=== PATIENT | female | born 1990 | race Hispanic/Latino ===

== ENCOUNTER 2019-09-09 11:18 | Emergency (ER) | payer BC ==
[~2019-09-09] VITALS: Ht 165.1 cm; Wt 72.6 kg
[2019-09-09] MEDS ORDERED: IBUPROFEN 600 MG TAB PO NR (12:00)
[2019-09-09 12:05] LABS: STREPTOCOCCUS GRP A ANTIGEN NEGATIVE (NEGATIVE)
[2019-09-09 12:15] LABS: INFLUENZAE A&B ANTIGEN (RAPID) POSITIVE FLU B (NEGATIVE)
== END 2019-09-09 12:36 | disposition home or self-care (01) ==
LOC: ER 11:18
DX: J11.1 Influenza due to unidentified influenza virus with other respiratory manifestations (principal)
CPT/HCPCS: 83518; 87070; 87400; 99283

== ENCOUNTER 2020-02-16 09:25 | Emergency (ER) | payer SELFPAY ==
[~2020-02-16] VITALS: Ht 165.1 cm; Wt 72.6 kg
--- OUTSIDE RECORDS SUMMARY | 2020-02-16 09:27 | XMS REPORT ---
[facility] Unknown Phone Unavailable Care Team Providers Care Physician Representative Name Role Phone NO, PCP PP Unavailable Problems This patient has no known problems. Allergies, Adverse Reactions, Alerts This patient has no known allergies or adverse reactions. Medications This patient has no known medications. Encounters Start Date/Time End Date/Time Encounter Type Admission Type Attending [facility] Care Department Encounter ID 2019-09-09 11:18:00 2019-09-09 12:36:00 Departed Emergency Room [facility] [id number] Results Test Description Test Time Test Comments Text Results Atomic Results Result Comments Influenza Virus Types A,B Antigen 2019-09-09 12:15:00 Influenza Virus Types A,B Antigen (test vaei=59421-3) POSITIVE FLU B NEGATIVE Results called to SHASHANK LAGUNA at 1214 on 09/09/19 by Brina Dalton. RB [place].Resu lts PRINTed to YARIEL GUZMAN in infection control at 1214 on 09/09/19 by Brina silverio.Group A Streptococcus [id number] 12:05:00* Test Item Value Reference Range Comments Group A Streptococcus Screen (test lmuk=51397-9) NEGATIVE NEGATIVE
== END 2020-02-16 09:50 | disposition home or self-care (01) ==
LOC: ER 09:25
DX: H60.92 Unspecified otitis externa, left ear (principal); H60.12 Cellulitis of left external ear
CPT/HCPCS: 99283

== ENCOUNTER 2020-02-18 12:32 | Emergency (ER) | payer SELFPAY ==
[~2020-02-18] VITALS: Ht 165.1 cm; Wt 72.6 kg
== END 2020-02-18 12:56 | disposition home or self-care (01) ==
LOC: ER 12:32
DX: H66.92 Otitis media, unspecified, left ear (principal)
CPT/HCPCS: 99282

== ENCOUNTER 2021-05-13 03:30 | Emergency (ER) | payer SELFPAY ==
[~2021-05-13] VITALS: Ht 165.1 cm; Wt 72.6 kg
== END 2021-05-13 04:15 | disposition home or self-care (01) ==
LOC: ER 03:30
DX: O20.9 Hemorrhage in early pregnancy, unspecified (principal); O20.0 Threatened abortion
CPT/HCPCS: 99283

== ENCOUNTER 2022-05-10 17:52 | Emergency (ER) | payer SELFPAY ==
[~2022-05-10] VITALS: Ht 165.1 cm; Wt 72.6 kg
[2022-05-10] MEDS ORDERED: LIDOCAINE HCL 1% LOCAL INJ 20 ML VIAL INJ ONE (18:15)
[2022-05-10 19:57] VITALS: BP 134/78
== END 2022-05-10 19:58 | disposition home or self-care (01) ==
LOC: ER 18:58
DX: S61.511A Laceration without foreign body of right wrist, initial encounter (principal); W25.XXXA Contact with sharp glass, initial encounter; Y93.G1 Activity, food preparation and clean up; Y92.090 Kitchen in other non-institutional residence as the place of occurrence of the external cause
CPT/HCPCS: 99282

== ENCOUNTER 2022-05-19 18:21 | Emergency (ER) | payer SELFPAY ==
[~2022-05-19] VITALS: Ht 165.1 cm; Wt 72.6 kg
== END 2022-05-19 20:30 | disposition home or self-care (01) ==
LOC: ER 18:28
DX: Z48.02 Encounter for removal of sutures (principal)
CPT/HCPCS: 99282